=== PATIENT | female | born 1985 | race Caucasian/White ===

== ENCOUNTER 2017-02-13 23:16 | Emergency (ER) | payer OTHER ==
[~2017-02-13] VITALS: Ht 175.3 cm; Wt 120.0 kg
[~2017-02-13 23:16] MED LIST: IBUP-238 PO; PRENTAB72 PO
[2017-02-13 23:18] VITALS: BP 186/111; PULSE 103; RESP 16; TEMP 98.5; O2SAT 99
[2017-02-14 00:13] VITALS: RESP 18; O2SAT 98
--- NOTE | 2017-02-14 00:13 | PD ---
HPI Chief Complaint: Cardiac Complaint Time Seen by Provider: 23:36 Travel History International Travel<30 days: No Contact w/Intl Traveler<30days: No Traveled to known affect area: No History of Present Illness HPI 31-year-old female complains of palpitation. Patient states that she started feeling palpitations since this morning. Patient denies any chest pain or shortness of breath. Patient denies any headache. Patient denies abdominal pain. Patient denies any nausea vomiting diarrhea. Patient denies any history of CAD. Patient denies history of thyroid disease. Patient denies any history of excessive caffeine intake. Patient states that she has family history of thyroid disease. PFSH Past Medical History Cancer: No Diabetes: Yes (GESTATIONAL DIABETES) Patient Takes Glucophage: No Diminished Hearing: No Gastrointestinal Disorders: Yes (ADMITTED 04/02/11 WITH CONSTIPATION) Genitourinary: No Hypertension: Yes (AT END OF ) Immune Disorder: No Implanted Vascular Access Dvce: No Musculoskeletal: No Neurologic: Yes (FEBRILE SEIZURES A TODDLER) Psychiatric: No Reproductive: No Respiratory: No Seizures: Yes (as a child) Thyroid Disease: No ?: Unknown LMP: 10 days ago : 3 Para: 1 Miscarriage: 1 Past Surgical History Oral Surgery: Yes Tonsillectomy: Yes Social History Alcohol Use: No Tobacco Use: No (never) Substance Use: No Allergies-Medications (Allergen,Severity, Reaction): Coded Allergies: No Known Allergies (Verified , 10/12/12) Reported Meds & Prescriptions Reported Meds & Active Scripts Active No Active Prescriptions or Reported Medications Review of Systems General / Constitutional: No: Fever Eyes: No: Visual changes HENT: No: Headaches Cardiovascular: Positive: Palpitations, No: Chest Pain or Discomfort Respiratory: No: Shortness of Breath Gastrointestinal: No: Abdominal Pain Genitourinary: No: Dysuria Musculoskeletal: No: Pain Skin: No Rash Neurologic: No: Weakness Psychiatric: No: Depression Endocrine: No: Polydipsia Hematologic/Lymphatic: No: Easy Bruising Physical Exam Narrative GENERAL: Well-nourished, well-developed patient. SKIN: Focused skin assessment warm/dry. HEAD: Normocephalic. EYES: No scleral icterus. No injection or drainage. NECK: Supple, trachea midline. No JVD or lymphadenopathy. CARDIOVASCULAR: Regular rate and rhythm without murmurs, gallops, or rubs. RESPIRATORY: Breath sounds equal bilaterally. No accessory muscle use. GASTROINTESTINAL: Abdomen soft, non-tender, nondistended. MUSCULOSKELETAL: No cyanosis, or edema. BACK: Nontender without obvious deformity. No CVA tenderness. Neurologic exam normal. Data Data Last Documented VS Vital Signs Date Time Temp Pulse Resp B/P Pulse Ox O2 Delivery O2 Flow Rate FiO2 02/14/17 00:13 18 98 Room Air 02/13/17 23:18 98.5 103 186/111 Orders Complete Blood Count With Diff (02/14/17 00:07) Comprehensive Metabolic Panel (02/14/17 00:07) Creatine Kinase (Cpk) (02/14/17 00:07) Troponin I (02/14/17 00:07) Prothrombin Time / Inr (Pt) (02/14/17 00:07) Act Partial Throm Time (Ptt) (02/14/17 00:07) Urinalysis - C+S If Indicated (02/14/17 00:07) D-Dimer (02/14/17 00:07) Thyroid Stimulating Hormone (02/14/17 00:07) Chest, Single Ap (02/14/17 00:07) Iv Access Insert/Monitor (02/14/17 00:07) Ecg Monitoring (02/14/17 00:07) Oximetry (02/14/17 00:07) Ed Urine Pregnancytest Poc (02/14/17 00:07) Sodium Chlor 0.9% 1000 Ml Inj (Ns 1000 M (02/14/17 00:15) Labs Laboratory Tests Test 02/14/17 00:00 White Blood Count 13.2 TH/MM3 Red Blood Count 5.08 MIL/MM3 Hemoglobin 14.5 GM/DL Hematocrit 42.8 % Mean Corpuscular Volume 84.3 FL Mean Corpuscular Hemoglobin 28.6 PG Mean Corpuscular Hemoglobin 34.0 % Concent Red Cell Distribution Width 13.2 % Platelet Count 228 TH/MM3 Mean Platelet Volume 9.3 FL Neutrophils (%) (Auto) 62.0 % Lymphocytes (%) (Auto) 30.0 % Monocytes (%) (Auto) 7.4 % Eosinophils (%) (Auto) 0.4 % Basophils (%) (Auto) 0.2 % Neutrophils # (Auto) 8.2 TH/MM3 Lymphocytes # (Auto) 4.0 TH/MM3 Monocytes # (Auto) 1.0 TH/MM3 Eosinophils # (Auto) 0.0 TH/MM3 Basophils # (Auto) 0.0 TH/MM3 CBC Comment DIFF FINAL Differential Comment Prothrombin Time 10.7 SEC Prothromb Time International 1.0 RATIO Ratio Activated Partial 27.9 SEC Thromboplast Time D-Dimer Quantitative (PE/DVT) 0.39 MG/L FEU Sodium Level 142 MEQ/L Potassium Level 3.4 MEQ/L Chloride Level 106 MEQ/L Carbon Dioxide Level 27.9 MEQ/L Anion Gap 8 MEQ/L Blood Urea Nitrogen 12 MG/DL Creatinine 0.81 MG/DL Estimat Glomerular Filtration 83 ML/MIN Rate Random Glucose 111 MG/DL Calcium Level 8.9 MG/DL Total Bilirubin 0.3 MG/DL Aspartate Amino Transf 17 U/L (AST/SGOT) Alanine Aminotransferase 22 U/L (ALT/SGPT) Alkaline Phosphatase 68 U/L Total Creatine Kinase 73 U/L Troponin I LESS THAN 0.02 NG/ML Total Protein 7.5 GM/DL Albumin 3.8 GM/DL Thyroid Stimulating Hormone 2.690 uIU/ML 3rd Gen [facility] Medical Decision Making Medical Screen Exam Complete: Yes Emergency Medical Condition: Yes Interpretation(s) 12:12 AM. EKG show sinus tachycardia rate 104. Nonspecific ST-T wave change. 2:27 AM. Last Impressions Chest X-Ray 02/14/17 0007 Signed Impressions: Service Date/Time: Tuesday, February 14, 2017 00:21 - CONCLUSION: Normal examination. Ayad Hollingsworth Jr., MD 2:27 AM. CBC WC 13.2. Normal differential. Potassium 3.4. TSH normal. Cardiac enzymes are normal. Differential Diagnosis Differential diagnosis including cardiac arrhythmia, SVT, atrial fibrillation, atrial flutter, PACs, dehydration, electrolyte imbalance, hyperthyroidism Narrative Course 31-year-old female with palpitation. Diagnosis Primary Impression: Tachycardia, paroxysmal Patient Instructions: General Instructions Additional Instructions: Avoid caffeine products. Encouraged by mouth fluid. Follow-up with personal physician. Return if worse. Med/Other Pt SpecificInfo: No Meds Exist/No RX given Scripts No Active Prescriptions or Reported Meds Disposition: DISCHARGE HOME Condition: Stable Yury Morfin MD Feb 14, 2017 00:13
[2017-02-14] MEDS ORDERED: SODIUM CHLOR 0.9% 1000 ML INJ 1,000 ML IV ONE (00:15)
[2017-02-14 00:26] LABS: AUTOMATED NEUTROPHIL # 8.2 TH/MM3 (1.8-7.7); BASOPHIL % 0.2 % (0.0-2.0); EOSINOPHIL % 0.4 % (0.0-4.0); HEMATOCRIT 42.8 % (35.0-46.0); HEMO FLAGS DIFF FINAL; MEAN CELL VOLUME 84.3 FL (80.0-100.0); MEAN CORPUSCULAR HEMOGLOBIN 28.6 PG (27.0-34.0); MONO % 7.4 % (0.0-8.0); PLATELET COUNT 228 TH/MM3 (150-450); RED BLOOD COUNT 5.08 MIL/MM3 (4.00-5.30); RED CELL DISTRIBUTION WIDTH 13.2 % (11.6-17.2); WHITE BLOOD COUNT 13.2 TH/MM3 (4.0-11.0)
[2017-02-14 00:38] LABS: APTT (PATIENT) 27.9 SEC (24.3-30.1); PROTHROMBIN TIME - PATIENT 10.7 SEC (9.8-11.6)
[2017-02-14 00:49] LABS: ALT (GPT) 22 U/L (10-53); ANION GAP 8 MEQ/L (5-15); AST (GOT) 17 U/L (15-37); BICARBONATE 27.9 MEQ/L (21.0-32.0); BLOOD UREA NITROGEN 12 MG/DL (7-18); CHLORIDE 106 MEQ/L (98-107); GLOMERULAR FILTRATION RATE 83 ML/MIN (>89); POTASSIUM 3.4 MEQ/L (3.5-5.1); SODIUM (NA) 142 MEQ/L (136-145)
--- NOTE | 2017-02-14 00:50 | RADRPT ---
EXAM DATE/TIME: 02/14/2017 00:21 [facility] COMPARISON: No previous studies available for comparison. INDICATIONS : Chest pain. MEDICAL HISTORY : None. SURGICAL HISTORY : None. ENCOUNTER: Initial ACUITY: 1 day PAIN SCORE: 4/10 LOCATION: Bilateral chest FINDINGS: A single view of the chest demonstrates the lungs to be symmetrically aerated without evidence of mas s, infiltrate or effusion. The cardiomediastinal contours are unremarkable. Osseous structures are intact. CONCLUSION: Normal examination. Ayad Hollingsworth Jr., MD on February 14, 2017 at 0:48 Board Certified Radiologist. This report was verified electronically.
[2017-02-14 00:59] LABS: ALKALINE PHOSPHATASE 68 U/L (45-117); TOTAL BILIRUBIN ADULT 0.3 MG/DL (0.2-1.0)
[2017-02-14 01:00] LABS: CREATINE KINASE 73 U/L (26-192)
--- NOTE | 2017-02-14 18:40 | EKG ---
Date Performed: 02/13/2017 Time Performed: 23:34:13 PTAGE: 31 years EKG: SINUS TACHYCARDIA POSSIBLE LEFT ATRIAL ENLARGEMENT LEFT VENTRICULAR HYPERTROPHY AND ST-T CH EPI ABNORMAL ECG NO PREVIOUS TRACING DOCTOR: Emil San Interpretating Date/Time 02/14/2017 18:39:31
== END 2017-02-14 03:14 | disposition home or self-care (01) ==
LOC: NEPC 23:16
DX: R00.0 Tachycardia, unspecified (principal); R94.31 Abnormal electrocardiogram [ECG] [EKG]
CPT/HCPCS: 71010; 80053; 82550; 84443; 84484; 85025; 85379; 85610; 85730; 93005; 96360; 99285; J7030

== ENCOUNTER 2017-04-20 19:17 | Emergency (ER) | payer OTHER ==
[~2017-04-20] VITALS: Ht 177.8 cm; Wt 120.0 kg
[2017-04-20 19:21] VITALS: BP 173/88; PULSE 104; RESP 16; TEMP 98.2; O2SAT 100
[2017-04-20] MEDS ORDERED: SE-NCHW CHEW (21:15)
--- NOTE | 2017-04-20 21:49 | PD ---
HPI Chief Complaint: Related Problem Time Seen by Provider: 21:08 Travel History International Travel<30 days: No Contact w/Intl Traveler<30days: No Traveled to known affect area: No History of Present Illness HPI This Is a 31-year-old woman presents to the emergency department complaining of vaginal bleeding and abdominal cramping in the setting of early . Her last menstrual period was March 05, placing her at 6 weeks 4 days by dates. She had a positive urine test at home. This evening she knows a little bit of bright red blood when she wiped with toilet paper. Since being here she' s had heavier bright red vaginal bleeding. She denies any pain or cramping. She is urinating more than normal but denies any dysuria or other symptoms. No abnormal vaginal discharge. She is 4 para 2, 0, 1, 2 with one previous miscarriage. History Past Medical History Medical History: Denies Significant Hx LMP: 03/05/17 : 4 Para: 2 Social History Alcohol Use: No Tobacco Use: No (never) Allergies-Medications (Allergen,Severity, Reaction): Coded Allergies: No Known Allergies (Verified , 04/20/17) Reported Meds & Prescriptions Reported Meds & Active Scripts Active Reported Se- 19 29-1 mg Chew ( Vit W/ Ferrous Fumara Chew) 1 Chew 1 Tab CHEW DAILY Review of Systems Except as stated in HPI: all other systems reviewed are Neg Physical Exam Narrative GENERAL: Well-appearing 31-year-old woman, tearful and crying. SKIN: Focused skin assessment warm/dry. NECK: Trachea midline. No JVD. CARDIOVASCULAR: Regular rate and rhythm. No murmur appreciated. RESPIRATORY: No accessory muscle use. Clear to auscultation. Breath sounds equal bilaterally. GASTROINTESTINAL: Abdomen soft, non-tender, nondistended. Hepatic and splenic margins not palpable. MUSCULOSKELETAL: No obvious deformities. No clubbing. No cyanosis. No edema. NEUROLOGICAL: Awake and alert. PELVIC: A moderate amount of bright red blood in the vaginal vault. There is some bloody mucoid discharge from the cervical os. Os is closed. No palpable uterine enlargement or adnexal masses. No CMT. Data Data Last Documented VS Vital Signs Date Time Temp Pulse Resp B/P Pulse Ox O2 Delivery O2 Flow Rate FiO2 04/20/17 19:21 98.2 104 16 173/88 100 Room Air Orders Ed Urine Pregnancytest Poc (04/20/17 21:09) Urinalysis - C+S If Indicated (04/20/17 21:09) Beta Hcg (Quant/Titer) (04/20/17 21:09) Ed Poc Ultrasound (04/20/17 ) Gc And Chlamydia Pcr (04/20/17 21:09) Wet Prep Profile (04/20/17 21:09) Complete Rh (04/20/17 21:16) Rhogam Only (04/20/17 21:16) Us Pelvis (Ques Pr/Ect)W Trans (04/20/17 ) Urine Culture (04/20/17 21:32) Labs Laboratory Tests Test 04/20/17 04/20/17 04/20/17 21:27 21:32 22:06 Clue Cells (Wet Prep) NONE SEEN Vaginal Trichomonas (Wet Prep) NONE SEEN Vaginal Yeast (Wet Prep) NONE SEEN Urine Color LIGHT-RED Urine Turbidity CLEAR Urine pH 5.5 Urine Specific [place] 1.024 Urine Protein 30 mg/dL Urine Glucose (UA) NEG mg/dL Urine Ketones 40 mg/dL Urine Occult Blood LARGE Urine Nitrite NEG Urine Bilirubin NEG Urine Urobilinogen LESS THAN 2.0 MG/DL Urine Leukocyte Esterase SMALL Urine RBC /hpf Urine WBC 59 /hpf Urine Squamous Epithelial 5 /hpf Cells Urine Amorphous Sediment RARE Urine Bacteria OCC /hpf Microscopic Urinalysis Comment CULTURE INDICATED Human Chorionic Gonadotropin, 205 MIU/ML Quant Blood Type O NEGATIVE Rho(D) Type NEGATIVE Blood Bank Comment Y MDM Medical Decision Making Medical Screen Exam Complete: Yes Emergency Medical Condition: Yes Interpretation(s) LABS: UA, hematuria HCG 205 Wet prep negative Pelvic ultrasound: No definite IUP. Moderate endometrial thickening. Differential Diagnosis Threatened AB, miscarriage, ectopic, other Narrative Course Medical decision making 31-year-old woman with threatened AB and early . Bedside ultrasound shows what appears to be blood in the uterus. No definite IUP was identified. Patient has known Rh-. We'll check labs, hCG, UA, transvaginal ultrasound, RhoGAM. Recommend outpatient follow-up. Diagnosis Primary Impression: Threatened Patient Instructions: General Instructions Additional Instructions: Return to the emergency department in 48 hours for repeat hCG. Return to emergency department sooner for any worsening abdominal pain, vaginal bleeding more than 1 pad per hour, or any other new or worsening symptoms. Med/Other Pt SpecificInfo: No Change to Meds Disposition: 01 DISCHARGE HOME Condition: Stable David Powell MD Apr 20, 2017 21:49
[2017-04-20 22:20] LABS: BACTERIA, URINE OCC /hpf; BLOOD, URINE LARGE (NEG); COMMENT (UR) CULTURE INDICATED; CULTURE IF INDICATED CULTURE INDICATED; GLUCOSE,URINE NEG (NEG); KETONE, URINE 40 mg/dL (NEG); NITRITE,URINE NEG (NEG); PH, URINE 5.5 (5.0-8.5); SQUAMOUS EPITHELIAL CELL URINE 5 /hpf (0-5); URINE COLOR LIGHT-RED (YELLW/STRAW)
[2017-04-20 22:58] LABS: BETA HCG QUANT 205 MIU/ML (0-5)
--- NOTE | 2017-04-20 23:41 | RADRPT ---
EXAM DATE/TIME: 04/20/2017 22:24 [facility] COMPARISON: No previous studies available for comparison. INDICATIONS : Vaginal bleeding. LAB(S): Beta-hC MEDICAL HISTORY : Hypertension. Oral Surgery. Gastrointestinal disorders. Seizures. Gestational diabetes. SURGICAL HISTORY : Tonsillectomy. ENCOUNTER: Initial ACUITY: 3 days PAIN SCORE: 0/10 LOCATION: Bilateral pelvis MEASUREMENTS: UTERUS: 9.5 x 6.8 x 5.8 cm ENDOMETRIAL STRIPE: 15 mm RIGHT OVARY: 3.6 x 1.9 x 2.2 cm LEFT OVARY: 2.9 x 2.3 x 1.9 cm FREE FLUID: No FINDINGS: UTERUS: The endometrium is thickened and has a mildly heterogeneous echotexture, but no gestational sac is id entified. No cystic areas seen in the endometrium. There is a tiny oval cystic area in the endocerv ical canal or lower uterine segment which measures 2 x 3 mm. Myometrial echotexture is homogeneous. RIGHT OVARY: Ovary contains no mass or significant cystic lesion. LEFT OVARY: Ovary contains no mass or significant cystic lesion. The echotexture of the ovary is mildly heteroge neous. MISCELLANEOUS: No free fluid. CONCLUSION: Intrauterine cannot be demonstrated. Moderate endometrial thickening without defined inter nal architecture. No evidence of free fluid. Ayad Espinoza MD on April 20, 2017 at 23:32 Board Certified Radiologist. This report was verified electronically.
[2017-04-21 04:27] LABS: CHLAMYDIA PCR NOT DETECTED (NOT DETECT); NEISSERIA PCR NOT DETECTED (NOT DETECT)
== END 2017-04-21 00:14 | disposition home or self-care (01) ==
LOC: NEPD 19:17
DX: O20.0 Threatened abortion (principal); R82.99 Other abnormal findings in urine; O36.0910 Maternal care for other rhesus isoimmunization, first trimester, not applicable or unspecified; Z3A.01 Less than 8 weeks gestation of pregnancy
CPT/HCPCS: 76700; 76817; 81001; 84702; 84703; 86901; 87086; 87210; 87491; 87591; 99284; J2790; 90384

== ENCOUNTER → 2018-02-04 | Outpatient (CLI) | payer OTHER ==
[~2018-02-04] MED LIST changes: -IBUP-238 PO; -PRENTAB72 PO; +SE-NCHW CHEW
== END ==
LOC: HPND 07:35
PROVIDERS: ATTEND Obstetrics & Gynecology
DX: O09.292 Supervision of pregnancy with other poor reproductive or obstetric history, second trimester (principal); O35.8XX0 Maternal care for other (suspected) fetal abnormality and damage, not applicable or unspecified
CPT/HCPCS: 76811; 76825; 76827; 93325

== ENCOUNTER → 2018-02-18 | Outpatient (CLI) | payer OTHER | LOC: HPND 08:15 | PROVIDERS: ATTEND Obstetrics & Gynecology | DX: O35.8XX0 Maternal care for other (suspected) fetal abnormality and damage, not applicable or unspecified (principal) | CPT/HCPCS: 76815 ==

== ENCOUNTER → 2018-03-04 | Outpatient (CLI) | payer OTHER | LOC: HPND 08:16 | PROVIDERS: ATTEND Obstetrics & Gynecology | DX: O35.8XX0 Maternal care for other (suspected) fetal abnormality and damage, not applicable or unspecified (principal) | CPT/HCPCS: 76816 ==

== ENCOUNTER 2018-06-16 20:19 | Inpatient (IN) ==
--- NOTE | 2018-06-16 21:12 | P.OBGPN ---
received call about pt who arrived for scheduled induction, nursing states patient feels well, no headaches, blurred vision or epigastric pain, they report her blood pressure is mild range of 140s over low 100s, she has no previous diagnosis of chronic hypertension or preeclampsia/gestational hypertension. The nursing reports she has a history of this in 1 of her previous pregnancies. Recommended them to trend her blood pressures, collect CMP and urine protein creatinine ratio in addition to the routine CBC and call me with any signs or symptoms of preeclampsia, severe range blood pressures and/ or abnormal blood work. Patient already has admission orders and Cervidil ordered for nursing to place.
[2018-06-16 21:40] LABS: Baso % (Auto) 0.1 % (0.0-2.0); Eos % (Auto) 0.4 % (0.0-4.0); Hematocrit 38.4 % (35.0-46.0); Hemoglobin 12.6 gm/dL (11.6-15.3); Lymph # (Auto) 2.9 th/mm3 (1.0-4.8); Lymph % (Auto) 22.6 % (9.0-44.0); Mean Corpuscular HGB Conc 32.8 % (32.0-36.0); Mean Corpuscular Hemoglobin 28.3 pg (27.0-34.0); Mean Corpuscular Volume 86.2 fL (80.0-100.0); Mean Platelet Volume 9.4 fL (7.0-11.0); Mono # (Auto) 0.7 th/mm3 (0.0-0.9); Mono % (Auto) 5.3 % (0.0-8.0); Neut # (Auto) 9.1 th/mm3 (1.8-7.7); Neut % (Auto) 71.6 % (16.0-70.0); Platelet Count 206 th/mm3 (150-450); Red Blood Count 4.45 mil/mm3 (4.00-5.30); Red Cell Distribution Width 13.5 % (11.6-17.2); White Blood Count 12.7 th/mm3 (4.0-11.0)
[2018-06-16 21:50] LABS: Bilirubin,Urine Negative (Negative); Clarity,Urine Clear (Clear); Color,Urine Yellow (Yellw/Straw); Glucose,Urine (UA) Negative (Negative); Leukocyte Esterase,Urine Negative (Negative); Mucus,Urine Few /lpf (Occasional); Nitrite,Urine Negative (Negative); Specific Gravity,Urine 1.026 (1.002-1.035); Squamous Epithelial Cell,Urine 2 /hpf (0-5)
[2018-06-16 21:52] LABS: Amphetamine Urine With Conf Neg (Neg); Benzodiazepine Urine With Conf Neg (Neg)
[2018-06-16 21:53] LABS: Protein/Creatinine Ratio,Urine 0.39 (0.00-0.14)
[2018-06-16 22:00] LABS: Albumin 2.4 g/dL (3.4-5.0); Anion Gap 13 meq/L (5-15); Aspartate Aminotransferase 17 U/L (15-37); Blood Urea Nitrogen 10 mg/dL (7-18); Calcium 8.8 mg/dL (8.5-10.1); Chloride 104 meq/L (98-107); Glomerular Filtration Rate Greater Than 89 mL/min (>89); Glucose,Random 117 mg/dL (74-106); Potassium 3.9 meq/L (3.5-5.1); Sodium 139 meq/L (136-145)
[2018-06-16 22:01] LABS: Alanine Aminotransferase 14 U/L (10-53)
[2018-06-16 22:03] LABS: Alkaline Phosphatase 139 U/L (45-117); Total Protein 6.6 g/dL (6.4-8.2)
[2018-06-16] MEDS ORDERED: Sodium Chlor 0.9% Inj 500 ML IV.SIG PRN (22:18)
[2018-06-16] MEDS ORDERED: Naloxone Inj 0.4 MG/ML Vial IV.PUSH PRN (22:18)
[2018-06-16] MEDS ORDERED: Oxytocin 30 Units/500ml Premix 30 UNITS/500 ML BAG IV.SIG ONE (22:18)
[2018-06-16] MEDS ORDERED: Sod Chloride 0.9% Inj 1,000 ML OTHER PRN (22:18)
[2018-06-16] MEDS ORDERED: fentaNYL Citrate Inj 100 MCG/2 ML Ampul IV.PUSH PRN ×2 (22:18)
[2018-06-16] MEDS ORDERED: Citric Acid/Sodium Citrate Liq 30 ML UDC PO SCH (22:30)
[2018-06-17] MEDS ORDERED: Acetaminophen 325 MG Tablet PO PRN (06:41)
--- NOTE | 2018-06-17 07:43 | MH ---
cc: David Escalante MD DATE OF ADMISSION: 06/16/2018 HISTORY OF PRESENT ILLNESS: The patient is a 33-year-old female, 5, para 2-2-0-2. The patient's last menstrual period was 08/31/2017. Estimated date of confinement calculated based on early first trimester ultrasounds was determined 06/13/2018. The patient presently is 40 weeks' gestation with slight elevation in blood pressure. The patient is to be brought in for induction of labor at term. course was remarkable for an early arrhythmia that would resolve spontaneously. echo was normal. The patient's group B strep status is negative. The patient's blood type is O negative. She received RhoGAM appropriately. ALLERGIES: THE PATIENT HAS NO KNOWN DRUG ALLERGIES. PAST MEDICAL HISTORY: Denies any systemic or chronic disease states. PAST SURGICAL HISTORY: Tonsillectomy as a child. OBSTETRICAL HISTORY: She is status post 2 vaginal deliveries at term, both uncomplicated. First baby weighed 6 pounds 8 ounces. The second infant was 7 pounds 10 ounces. Both vaginal deliveries, females. SOCIAL HISTORY: The patient is with a good support system. Denies use of tobacco, alcohol or illicit substances. FAMILY HISTORY: Noncontributory. PHYSICAL EXAMINATION: GENERAL: The patient is a well-appearing female in no acute distress. VITAL SIGNS: Stable. Blood pressure is 130/82. Pulse and respiratory rate are normal. heart tones in the 140s. HEENT: Shows no adenopathy or thyromegaly. NECK: Supple with full range of motion CARDIAC: Regular rate and rhythm without murmur, rub or gallop. LUNGS: Clear in all razo. ABDOMEN: Gravid, full-term. Fundal height 42 cm. Vertex presentation. PELVIC: Cervix is 50%, fingertip, -2, posterior, soft. Intact membranes. Estimated weight is approximately 7 pounds. EXTREMITIES: Symmetrical. She has 1+ pedal edema. There is no hyperreflexia. There is no calf tenderness. There is no cyanosis, clubbing or edema. NEUROLOGIC: Grossly intact, nonfocal. LABORATORY DATA: Recent laboratory assessment of the patient showed some mild elevation in her protein/creatinine ratio. Otherwise, no abnormality of her liver enzymes, platelets. ASSESSMENT: The patient is 40 weeks and 2 days, for induction of labor, suspect developing -induced hypertension, group B streptococcus status negative, history of arrhythmia, which has spontaneously resolved with a normal echocardiogram. PLAN OF MANAGEMENT: Expectant vaginal delivery, induction of labor with Cervidil for subsequent augmentation of labor as needed. MD IRENE Brooks/shankar , 05:24 PM , 05:31 PM
[2018-06-17] MEDS ORDERED: Oxytocin 30 Units/500ml Premix 30 UNITS/500 ML BAG IV.SIG PRN (08:20)
[2018-06-17] MEDS ORDERED: fentaNYL 2MCG-Bupiv 0.125% Epi 150 ML EPIDURAL ONE (12:34)
--- NOTE | 2018-06-17 14:04 | P.OBLABOR ---
Subjective Interval history: Patient examined post epidural, cervix 60/4/-2, soft tissue palpated posteriorly concerning for small parts v. cord, fluid was leaking at time of attempted AROM, clear. Bedside sonogram demonstrated vertex presentation,my fingers were visable on sonogram no evidence of cord or small parts seen or palpated shortly after Uc. FSE applied with cat. 1 tracing. NO further soft tissue palpated,vertex well applied. will continue with expectant management. anticipate vaginal delivery. Objective Vital Signs: Vital Signs - 8 hr 06/17/18 06:14 06/17/18 07:18 06/17/18 08:19 Temperature 99.1 F Pulse Rate 86 Respiratory Rate 18 18 Blood Pressure 130/71 06/17/18 08:20 06/17/18 09:00 06/17/18 09:35 Temperature Pulse Rate 96 H 100 H 98 H Respiratory Rate 18 Blood Pressure 139/86 140/83 133/72 06/17/18 10:00 06/17/18 10:36 06/17/18 10:37 Temperature 98.9 F Pulse Rate 98 H 96 H Respiratory Rate 17 Blood Pressure 140/96 H 132/81 06/17/18 11:01 06/17/18 11:13 06/17/18 11:49 Temperature Pulse Rate 101 H 102 H 97 H Respiratory Rate Blood Pressure 141/100 H 147/100 H 134/82 06/17/18 12:31 06/17/18 12:55 06/17/18 13:00 Temperature Pulse Rate 92 H 103 H 103 H Respiratory Rate Blood Pressure 136/84 135/78 06/17/18 13:07 06/17/18 13:11 06/17/18 13:16 Temperature Pulse Rate 98 H 93 H 95 H Respiratory Rate Blood Pressure 125/70 125/70 135/77 06/17/18 13:25 Temperature Pulse Rate 92 H Respiratory Rate Blood Pressure 128/65 Objective: Pelvic Exam: Cervix: mid position Dilatation: 4 Effacement: 60 Station: -2 Presentation: vtx Membranes: ruptured] clear Uterine Contractions: mod. FHT's: Category: 1 Baseline: 140s Reactive: y Variability: moderate Decels: no Patient Started Active Labor: Yes Medical Induction of Labor: Yes Artificial Rupture of Membrane: Yes Artificial ROM Date: 06/17/18 Artificial ROM Time: 13:31 Assessment and Plan - Plan Expectant management, anticipate vaginal delivery, FHT cat 1 tracing.
[2018-06-17] MEDS ORDERED: Lidocaaine 1.5%/Epinephrine 1:200,000 PF Inj 5 ML Amp ONE (15:39)
[2018-06-17] MEDS ORDERED: Measles/Mumps/Rubella Vaccine Inj 0.5 ML Vial SQ ONE (16:00)
[2018-06-17] MEDS ORDERED: Diphtheria/Tetanus/Pertussis Vaccine Inj 0.5 ML Syringe IM ONE (16:00)
[2018-06-17 17:04] LABS: Cord Arterial Blood HCO3 24.6
[2018-06-17] MEDS ORDERED: Bisacodyl 10 MG Supp RECTAL PRN (17:08)
[2018-06-17] MEDS ORDERED: Zolpidem Tartrate 5 MG Tablet PO PRN (17:08)
[2018-06-17] MEDS ORDERED: Ibuprofen 400 MG Tablet PO PRN (17:08)
[2018-06-17] MEDS ORDERED: Benzocaine 20% Top Spray 60 ML Can TOPICAL PRN (17:08)
[2018-06-17] MEDS ORDERED: Naloxone Inj 0.4 MG/ML Vial IV.PUSH PRN (17:08)
[2018-06-17] MEDS ORDERED: Witch Hazel 50%/Glyderin 12.5% 40 Pad Jar RECTAL PRN (17:08)
--- NOTE | 2018-06-17 17:08 | P.OBDELI ---
Weeks Gestation: 41 Medical Induction of Labor: Yes (PIH) Medical Induction Start Date: 06/16/18 Medical Induction Start Time: 21:00 Artificial Rupture of Membrane: Yes (clear) Artificial ROM Date: 06/17/18 Artificial ROM Time: 13:31 Anesthesia: Epidural Episiotomy: none Vaginal Delivery: Vacuum (Kiwi x1 pull, no pop offs) Presentation: Occiput anterior Nuchal Cord: Other (right shoulder/rue cord) Delayed Cord Clamping (45 sec): Yes Placenta: Spontaneous delivery, Intact, 3 vessel cord, Cord pH Laceration: Vaginal, 1 deg Repair: Vicryl running Estimated blood loss (mL): 300 : Female Delivery Date: 06/17/18 score (1 min): 9 score (5 min): 9
[2018-06-17] MEDS ORDERED: Oxytocin 30 Units/500ml Premix 30 UNITS/500 ML BAG IV.CONT SCH (17:15)
[2018-06-17] MEDS: Senna/Docusate Sodium 8.6/50 MG Tablet PO SCH (21:30)
[2018-06-17] MEDS: Acetaminophen 325 MG Tablet PO PRN (21:31)
[2018-06-18] MEDS: Acetaminophen 325 MG Tablet PO PRN ×3 (04:26→21:01)
--- NOTE | 2018-06-18 07:45 | P.PNOB ---
Subjective Post day: 1 Interval history: Pt feels well, no headaches or blurry vision Objective Vital Signs/I&O: Vital Signs 06/17/18 08:19 06/17/18 08:20 06/17/18 09:00 Temperature 99.1 F Pulse Rate 96 H 100 H Respiratory Rate 18 Blood Pressure 139/86 140/83 06/17/18 09:35 06/17/18 10:00 06/17/18 10:36 Temperature 98.9 F Pulse Rate 98 H 98 H Respiratory Rate 17 Blood Pressure 133/72 140/96 H 06/17/18 10:37 06/17/18 11:01 06/17/18 11:13 Temperature Pulse Rate 96 H 101 H 102 H Respiratory Rate Blood Pressure 132/81 141/100 H 147/100 H 06/17/18 11:49 06/17/18 12:31 06/17/18 12:55 Temperature Pulse Rate 97 H 92 H 103 H Respiratory Rate Blood Pressure 134/82 136/84 06/17/18 13:00 06/17/18 13:07 06/17/18 13:11 Temperature Pulse Rate 103 H 98 H 93 H Respiratory Rate Blood Pressure 135/78 125/70 125/70 06/17/18 13:16 06/17/18 13:25 06/17/18 13:50 Temperature Pulse Rate 95 H 92 H 81 Respiratory Rate Blood Pressure 135/77 128/65 127/78 06/17/18 14:01 06/17/18 14:31 06/17/18 15:01 Temperature Pulse Rate 82 88 92 H Respiratory Rate Blood Pressure 123/73 121/73 116/77 06/17/18 15:31 06/17/18 15:47 06/17/18 16:01 Temperature 98.7 F Pulse Rate 94 H 98 H Respiratory Rate 17 Blood Pressure 137/91 H 134/67 06/17/18 16:54 06/17/18 17:01 06/17/18 17:11 Temperature Pulse Rate 104 H 98 H Respiratory Rate 17 Blood Pressure 140/83 131/67 06/17/18 17:17 06/17/18 17:31 06/17/18 17:35 Temperature Pulse Rate 96 H 92 H Respiratory Rate 18 17 Blood Pressure 126/73 128/65 06/17/18 17:46 06/17/18 18:01 06/17/18 18:15 Temperature Pulse Rate 92 H 99 H Respiratory Rate 16 Blood Pressure 135/91 H 154/84 H 06/17/18 18:16 06/17/18 18:40 06/17/18 19:15 Temperature 99.1 F Pulse Rate 108 H 113 H Respiratory Rate 16 18 Blood Pressure 159/87 H 153/83 H 06/17/18 19:37 06/17/18 19:40 06/17/18 20:00 Temperature 98.8 F Pulse Rate 115 H 119 H 117 H Respiratory Rate 18 Blood Pressure 162/78 H 124/67 150/84 H Result Diagrams: 06/16/18 21:05 06/16/18 21:05 Objective Remarks: GENERAL: Well-nourished, well-developed patient. CARDIOVASCULAR: Regular rate and rhythm without murmurs, gallops, or rubs. RESPIRATORY: Breath sounds equal bilaterally. No accessory muscle use. ABDOMEN/GI: Abdomen soft, non-tender. Fundus: Firm, non-tender at umbilicus. GENITOURINARY: Light to moderate bleeding. EXTREMITIES: No cyanosis or edema, non-tender, without signs of DVT. Medications and IVs: Active Medications Acetaminophen (Tylenol) 650 mg PO Q4H PRN PRN Reason: PAIN SCALE 1 TO 2 Last Admin: 06/18/18 04:26 Dose: 650 mg Al Hydroxide/Mg Hydroxide (Milk Of Magnesia Liq) 30 ml PO Q12H PRN PRN Reason: Mild Constipation Benzocaine (Americaine 20% [place]) 1 spray TOPICAL Q4H PRN PRN Reason: For Perineum Discomfort Bisacodyl (Dulcolax Supp) 10 mg RECTAL DAILY PRN PRN Reason: SEVERE CONSITIPATION Citric Acid/Sodium Citrate (Sodium Citrate/Citric Acid Liq) 30 ml PO [employer] [facility] Stop: 06/20/18 22:29 Ephedrine Sulfate (Ephedrine/Ns Syringe) 10 mg IV.PUSH UNSCH PRN PRN Reason: SEE LABEL COMMENTS Stop: 06/18/18 13:28 Fentanyl Citrate (Fentanyl Inj) 50 mcg IV.PUSH Q1H PRN PRN Reason: Pain Scale 3 - 5 Fentanyl Citrate (Fentanyl Inj) 100 mcg IV.PUSH Q1H PRN PRN Reason: PAIN SCALE 6 TO 10 Last Admin: 06/17/18 11:48 Dose: 100 mcg Lactated Ringer's (Lr 1000 Ml Inj) 1,000 mls @ 125 mls/hr IV.CONT .Q8H [facility] Last Admin: 06/18/18 06:19 Dose: Not Given Lactated Ringer's (Lr 1000 Ml Inj) 1,000 mls @ 3,000 mls/hr IV.SIG UNSCH PRN PRN Reason: compromise or epidural Sodium Chloride (Ns Inj) 1,000 mls @ 100 mls/hr OTHER .Q10H PRN PRN Reason: SEE LABEL COMMENTS Sodium Chloride (Ns Inj) 500 mls @ 1,000 mls/hr IV.SIG UNSCH PRN PRN Reason: SEE LABEL COMMENTS Ibuprofen (Motrin) 800 mg PO Q8H PRN PRN Reason: FOR CRAMPING Last Admin: 06/18/18 05:17 Dose: 800 mg Labetalol HCl (Trandate) 100 mg PO BID [facility] Lactulose (Lactulose Liq) 30 ml PO DAILY PRN PRN Reason: SEVERE CONSITIPATION Lidocaine HCl (Xylocaine 1% Inj) 0.1 ml I-DERMAL UNSCH X1 PRN PRN Reason: For IV start Lidocaine HCl (Xylocaine 1% Inj) 10 ml INFILTRATN UNSCH X1 PRN PRN Reason: For episiotomy repair Mineral Oil (Muri-Lube Oil) 10 ml TOPICAL PRN PRN PRN Reason: PRN perineal massage Miscellaneous Information (Misc Information) 1 each OTHER UNSCH PRN PRN Reason: SEE LABEL COMMENTS Stop: 06/18/18 13:28 Miscellaneous Information (Misc Information) 1 each OTHER UNSCH PRN PRN Reason: SEE LABEL COMMENTS Stop: 06/18/18 13:28 Naloxone HCl (Narcan Inj) 0.1 mg IV.PUSH Q2M PRN PRN Reason: for opiate reversal Ondansetron HCl (Zofran Odt) 4 mg PO Q6H PRN PRN Reason: NAUSEA OR VOMITING Oxytocin (Pitocin Inj) 20 unit IV.SIG ONCE PRN PRN Reason: For excessive bleeding Stop: 06/18/18 17:07 Senna/Docusate Sodium (Jennifer-Colace) 1 tab PO BID [facility] Last Admin: 06/17/18 21:30 Dose: 1 tab Sennosides (Senokot) 17.2 mg PO Q12H PRN PRN Reason: Moderate Constipation Sodium Chloride (Ns Flush) 2 ml IV.FLUSH BID JENN Last Admin: 06/17/18 21:30 Dose: 2 ml Sodium Chloride (Ns Flush) 2 ml IV.FLUSH PRN PRN PRN Reason: FLUSH AFTER USING IV ACCESS [place]/Glycerin (Tucks Pads) 1 applicatio RECTAL QID PRN PRN Reason: HEMORRHOIDS Zolpidem Tartrate (Ambien) 5 mg PO HS PRN PRN Reason: SLEEP Assessment and Plan - Plan PPD 1 PRe-e : BP elevated overnight, labetalol 100mg bid was prescribed. Repeat bp this am 130/80's, not in system yet. Will hold am dose and monitor bp during the day Discharge Planning: ppd 2
[2018-06-18] MEDS: Senna/Docusate Sodium 8.6/50 MG Tablet PO SCH ×2 (11:45→21:00)
[2018-06-18] MEDS ORDERED: Labetalol 100 MG Tablet PO ONE (21:00)
--- NOTE | 2018-06-19 07:53 | P.PNOB ---
Subjective Post day: 2 Interval history: Doing well, pain controlled, vaginal bleeding less than menses, denies headache , blurred vision or epigastric pain. Objective Vital Signs/I&O: Vital Signs 06/18/18 08:00 06/18/18 16:28 06/18/18 20:00 Temperature 97.9 F 97.8 F 98.4 F Pulse Rate 73 79 62 Respiratory Rate 18 Blood Pressure 130/70 153/84 H 151/84 H Intake & Output 06/18/18 06/19/18 06/19/18 18:59 06:59 18:59 Intake Total Balance Intake: Intake (Blood Product) Amt Rho(D) Immune Globulin Unit [id number] Result Diagrams: 06/16/18 21:05 06/16/18 21:05 Objective Remarks: GENERAL: Well-nourished, well-developed patient. CARDIOVASCULAR: Regular rate and rhythm without murmurs, gallops, or rubs. RESPIRATORY: Breath sounds equal bilaterally. No accessory muscle use. ABDOMEN/GI: Abdomen soft, non-tender. Fundus: Firm, non-tender at umbilicus. GENITOURINARY: Light to moderate bleeding. EXTREMITIES: No cyanosis or edema, non-tender, without signs of DVT. Medications and IVs: Active Medications Acetaminophen (Tylenol) 650 mg PO Q4H PRN PRN Reason: PAIN SCALE 1 TO 2 Last Admin: 06/18/18 21:01 Dose: 650 mg Al Hydroxide/Mg Hydroxide (Milk Of Magnesia Liq) 30 ml PO Q12H PRN PRN Reason: Mild Constipation Benzocaine (Americaine 20% Top [place]) 1 spray TOPICAL Q4H PRN PRN Reason: For Perineum Discomfort Bisacodyl (Dulcolax Supp) 10 mg RECTAL DAILY PRN PRN Reason: SEVERE CONSITIPATION Citric Acid/Sodium Citrate (Sodium Citrate/Citric Acid Liq) 30 ml PO [employer]UST[employer]ER [employer] [facility] Stop: 06/20/18 22:29 Fentanyl Citrate (Fentanyl Inj) 50 mcg IV.PUSH Q1H PRN PRN Reason: Pain Scale 3 - 5 Fentanyl Citrate (Fentanyl Inj) 100 mcg IV.PUSH Q1H PRN PRN Reason: PAIN SCALE 6 TO 10 Last Admin: 06/17/18 11:48 Dose: 100 mcg Lactated Ringer's (Lr 1000 Ml Inj) 1,000 mls @ 125 mls/hr IV.CONT .Q8H [facility] [place] Last Admin: 06/19/18 06:32 Dose: Not Given Lactated Ringer's (Lr 1000 Ml Inj) 1,000 mls @ 3,000 mls/hr IV.SIG UNSCH PRN PRN Reason: compromise or epidural Sodium Chloride (Ns Inj) 1,000 mls @ 100 mls/hr OTHER .Q10H PRN PRN Reason: SEE LABEL COMMENTS Sodium Chloride (Ns Inj) 500 mls @ 1,000 mls/hr IV.SIG UNSCH PRN PRN Reason: SEE LABEL COMMENTS Ibuprofen (Motrin) 800 mg PO Q8H PRN PRN Reason: FOR CRAMPING Last Admin: 06/18/18 23:43 Dose: 800 mg Labetalol HCl (Trandate) 100 mg PO BID [facility] [place] Lactulose (Lactulose Liq) 30 ml PO DAILY PRN PRN Reason: SEVERE CONSITIPATION Lidocaine HCl (Xylocaine 1% Inj) 0.1 ml I-DERMAL UNSCH X1 PRN PRN Reason: For IV start Lidocaine HCl (Xylocaine 1% Inj) 10 ml INFILTRATN UNSCH X1 PRN PRN Reason: For episiotomy repair Mineral Oil (Muri-Lube Oil) 10 ml TOPICAL PRN PRN PRN Reason: PRN perineal massage Naloxone HCl (Narcan Inj) 0.1 mg IV.PUSH Q2M PRN PRN Reason: for opiate reversal Ondansetron HCl (Zofran Odt) 4 mg PO Q6H PRN PRN Reason: NAUSEA OR VOMITING Senna/Docusate Sodium (Jennifer-Colace) 1 tab PO BID [facility] [place] Last Admin: 06/18/18 21:00 Dose: 1 tab Sennosides (Senokot) 17.2 mg PO Q12H PRN PRN Reason: Moderate Constipation Sodium Chloride (Ns Flush) 2 ml IV.FLUSH BID [facility] [place] Last Admin: 06/18/18 23:05 Dose: Not Given Sodium Chloride (Ns Flush) 2 ml IV.FLUSH PRN PRN PRN Reason: FLUSH AFTER USING IV ACCESS [place]/Glycerin (Tucks Pads) 1 applicatio RECTAL QID PRN PRN Reason: HEMORRHOIDS Zolpidem Tartrate (Ambien) 5 mg PO HS PRN PRN Reason: SLEEP Assessment and Plan - Plan 33-year-old 023 status post at 41 weeks 1. day #2: Meeting milestones, discharge home today -Female 2. Preeclampsia without severe features: Continue labetalol 100 twice daily, discussed severe features and need to follow-up in the office in 1 week, patient states she had some itching with labetalol she believes, this medicine is unlikely to cause allergy but rec her to continue this and call if she has any recurrent episodes of itching and can switch to something else.
--- NOTE | 2018-06-19 07:54 | P.DS ---
Date of admission: 06/16/18 20:19 Primary care physician: Theo Sy MD Brief History from admission: 33-year-old G5 now P3 023 who presented as an induction of labor secondary to preeclampsia, she delivered vaginally without complications. She was discharged home on #2. Blood pressure was controlled with labetalol 100 mg twice daily during her admission and was discharged home with this. DS: Medications - Discharge Medications Prescriptions: ibuprofen [Motrin IB] 600 mg PO TID-QID PRN #30 tab PRN Reason: Pain labetalol 100 mg PO BID 30 Days #60 tab DS: Summary Hospital Course: See brief history - Time Spent with Patient Total time spent providing and/or coordinating discharge services: Less than 30 minutes Exam Vital signs: Vital Signs 06/18/18 08:00 06/18/18 16:28 06/18/18 20:00 Temperature 97.9 F 97.8 F 98.4 F Pulse Rate 73 79 62 Respiratory Rate 18 16 18 Blood Pressure 130/70 153/84 H 151/84 H Intake & Output 06/18/18 06/19/18 06/19/18 18:59 06:59 18:59 Intake Total Balance Intake: Intake (Blood Product) Amt Rho(D) Immune Globulin Unit [id number] Results Procedures completed during hospitalization: Labs on day of discharge: Labs from last 24 hours 06/18/18 05:54 Blood Type O Negative Blood Type Recheck Not needed Ab Screen Tube Method Negative Blood Bank Comment Discharge Plan - Discharge Disposition Patient Disposition: 01 Discharge Home - Discharge Condition Condition: Good - Discharge Order Discharge Orders: Discharge Order (Routine); Ordered 06/19/18 Ordered By: Damon Telles - Discharge Details Anticipated Discharge Date: 06/19/18 - Physicians Team Primary Care Provider: Theo Sy Attending Provider: David Escalante - Rxs /Orders / Referrals /Forms Prescriptions: New ibuprofen [Motrin IB] 200 mg Tablet 600 mg PO TID-QID PRN (Reason: Pain) Qty: 30 RF: 1 labetalol 100 mg Tablet 100 mg PO BID 30 Days Qty: 60 RF: 1 Continue No Known Home Medications Referrals: David Escalante MD [Physician] - See Instructions - Discharge Instructions Additional Instructions: Please call and make 1 week office follow up Call the office is having persistent headache, changes in vision, right upper quadrant pain in her abdomen. If Blood pressures are 160s systolic and/or 110 diastolic or greater please call the office or present to the hospital - Post Discharge Care Plan Care Plan Goals: Congratulations on your new baby! We want your recovery to be freeman and trouble free. Please Report the Following Symptoms to Your Doctor: -Temperature above 100.5 degrees -Unusual pain or calf pain -Increased vaginal bleeding -Painful or difficulty urinating -Feelings of extreme sadness or anxiety Goals to Promote Your Health * To prevent worsening of your condition and complications * To maintain your health at the optimal level Directions to Meet Your Goals Take your medications as prescribed Follow your dietary instruction Follow activity as directed Ensure plenty of rest for recovery Drink fluids for hydration Keep your appointments as scheduled Take your immunizations and boosters as scheduled If your symptoms worsen call your OB Physician, or go to an Urgent Care Center or Emergency Room Smoking is Dangerous to your health. Avoid second hand smoke Call the 24-hour crisis hotline for domestic abuse at
[2018-06-19] MEDS: Senna/Docusate Sodium 8.6/50 MG Tablet PO SCH (08:12)
[2018-06-19 09:29] VITALS: BP 130/74; PULSE 74; RESP 20; TEMP 98.1
[2018-06-19] MEDS ORDERED: Labetalol 100 MG Tablet PO SCH (21:00)
== END 2018-06-19 12:22 | disposition home or self-care (01) ==
LOC: H2E 20:19 → H1EA 06-17 20:03
PROVIDERS: ADMIT Obstetrics & Gynecology; ATTEND Obstetrics & Gynecology